=== PATIENT | male | born 1975 | race Two or more races ===

== ENCOUNTER 2022-12-16 00:25 | Emergency (ER) | payer OTHER ==
[~2022-12-16] VITALS: Ht 162.6 cm; Wt 66.2 kg
[2022-12-16] MEDS ORDERED: LEVOTHYROXINE50 MC1 (00:44)
[2022-12-16] MEDS ORDERED: KETO10TA2 PO (04:17)
[2022-12-16] MEDS ORDERED: NORFLEX100MG PO (04:17)
== END 2022-12-16 05:40 ==
LOC: ER 00:25
DX: M54.2 Cervicalgia (principal); M62.838 Other muscle spasm; Z91.013 Allergy to seafood